=== PATIENT | male | born 1985 | race Caucasian/White ===

== ENCOUNTER 2020-06-11 16:52 | Outpatient (REF) | payer OTHER, SELFPAY | END 2020-06-11 16:53 | disposition home or self-care (01) | LOC: HO.LAB 16:52 | PROVIDERS: Visit Provider Internal Medicine | DX: Z20.828 Contact with and (suspected) exposure to other viral communicable diseases (principal) | CPT/HCPCS: C9803; U0003 ==

== ENCOUNTER 2020-07-05 12:24 | Outpatient (REF) | payer OTHER, SELFPAY | END 2020-07-05 12:25 | disposition home or self-care (01) | LOC: HO.LAB 12:24 | PROVIDERS: Visit Provider Internal Medicine | DX: Z20.828 Contact with and (suspected) exposure to other viral communicable diseases (principal) | CPT/HCPCS: C9803; U0003 ==

== ENCOUNTER 2021-03-22 18:42 | Emergency (ER) | payer OTHER, SELFPAY ==
--- NOTE | 2021-03-22 | ECG_ITS ---
Test Reason : CP Blood Pressure : / mmHG Vent. Rate : 086 BPM Atrial Rate : 086 BPM P-R Int : 106 ms QRS Dur : 076 ms QT Int : 342 ms P-R-T Axes : 052 039 040 degrees QTc Int : 409 ms Sinus rhythm with short HI Otherwise normal ECG When compared with ECG of 23-MAR-2017 12:14, No significant change was found Referred By: Generic ED Physician Electronically Signed By:NADER GUO
--- NOTE | ~2021-03-22 | XR_ITS ---
EXAMINATION: XR CHEST CLINICAL INFORMATION: Chest pain COMPARISON: 03/23/2017 TECHNIQUE: 2 views of the chest were obtained. FINDINGS: Cardiac leads overlie the chest. The lungs are well expanded. There is no focal consolidation, edema, or effusion. No pneumothorax. The cardiomediastinal silhouette is within normal limits. No acute osseous abnormality. XR/XR chest 2V IMPRESSION: Clear lungs.
[2021-03-22 18:44] VITALS: BP 130/84; PULSE 93; RESP 20; TEMP 36.6; O2SAT 98
[2021-03-22 20:27] VITALS: BP 111/77; PULSE 71; RESP 14; O2SAT 97
--- NOTE | 2021-03-22 20:44 | ED_ITS ---
HPI - Chest Pain General Chief Complaint: Chest Pain Stated Complaint: cp Time Seen by Provider: 03/22/21 22:11 Source: patient Mode of arrival: ambulatory Limitations: no limitations History of Present Illness HPI narrative: 36-year-old male presents with multiple episodes of sharp left- sided chest pain starting yesterday. Stated that his pain started while he was at rest, and also occurred during physical exertion. Stated that the pain also cause some hand pain and tingling to the left upper extremity. He does not report any pressure, palpitations, shortness of breath, diaphoresis, abdominal pain, abdominal distention, dysuria, hematuria, nausea, vomiting, diarrhea, constipation, edema, fevers or chills. MD complaint: chest pain Onset (ago): day(s) (2) Timing of current episode: episodic Prior episodes: No Onset: during rest Pain location: left chest Pain radiation: left arm Severity: moderate Quality: sharp Relieving factors: nothing Treatment prior to arrival: none Risk Factors Coronary artery disease risk factors: none Thoracic aortic dissection risk factors: none Related Data Previous Rx's Medication Instructions Recorded ibuprofen 600 mg tablet 600 mg PO Q6H PRN #30 tab 03/22/21 Allergies Allergy/AdvReac Type Severity Reaction Status Date / Time No Known Allergies Allergy Unverified 04/18/20 15:56 Review of Systems Review of Systems: Constitutional: No Fever, No Chills ENT/Mouth: No Ear Pain, No Hoarseness, No sore throat Eyes: No Eye Pain, No Swelling, No Redness, No Foreign Body Cardiovascular: Left intermittent sharp stabbing Chest Pain, No SOB Respiratory: No Cough, No Dyspnea Gastrointestinal: No Nausea, No Vomiting, No Diarrhea, No abdominal Pain Genitourinary: No Dysuria, No Hematuria Musculoskeletal: No joint pain, No Myalgias, No Joint Swelling Skin: No Skin lacerations, No rash Neuro: No Weakness, No Numbness, No Paresthesias, No Loss of Consciousness, No Dizziness, No Headache Psych: No Anxiety/Panic, No Depression Heme/Lymph: no easy bruising, no Lymphadenopathy Endocrine: No Polyuria, No Polydipsia Yes all other systems are reviewed and are negative PMFSH Past Medical History Attestation statement: The following information was validated with the patient. Source: old records reviewed Medical History No known health problems Social History Social History Alcohol intake: never Patient Tobacco Use Status: Current someday Tobacco user Substance Use Type: Marijuana Advance Directives: No Advance Directives Information Provided: No Physical Exam Vital Signs: Vital Signs: Last Vital Signs Temp 97.8 F 03/22/21 18:44 Pulse 74 03/22/21 23:34 Resp 18 03/22/21 23:34 BP 124/72 03/22/21 23:34 Pulse Ox 99 03/22/21 23:34 Body Mass Index 30.0 Appearance: Alert. Oriented X3. No acute distress. Eyes: Pupils equal, round and reactive to light. ENT: Pharynx normal. Moist mucous membranes. Neck: Normal inspection. Neck supple. No cervical lymphadenopathy. CVS: Normal heart rate and rhythm. Pulses normal. Chest wall nontender to palpation. Respiratory: No respiratory distress. Breath sounds normal. Abdomen: Soft and nontender. Skin: Skin warm and dry. Normal skin color. Normal skin turgor. Extremities: No lower extremity edema. Gait well balanced well coordinated. Strength 5 in 5 to all extremities. Neuro: No motor deficit. No sensory deficit. Cranial nerves 2-12 intact. Course Course Course Narrative: 36-year-old male presents with intermittent sharp chest pain to the left side. EKG is normal sinus, troponins are negative. Lab values are negative. Chest x-ray is normal. Highly unlikely that this is ACS at this time. Wells PE and DVT score 0. No history of IVDA or hormone or steroid use. has no family history of sudden cardiac or aortic aneurysms. 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 Most likely pleurisy or costochondritis. Will order Motrin for him. Patient verbalized understanding of and agrees plan of care discharge home. MDM - Chest Pain Differential Diagnosis Differential diagnosis: Likely fracture of rib, pneumothorax, stable angina, atypical chest pain, st elevation myocardial infarction, costochondritis and chest pain Medical Records Data Attestation: I reviewed the patient's medical records. Lab Data Attestation: I reviewed the patient's lab results. Result diagrams: 03/22/21 21:11 03/22/21 21:51 Labs: Lab Results 03/22/21 03/22/21 03/22/21 Range/Units 21:11 21:11 21:51 WBC 9.3 (4.8-10.8) X10*3/uL RBC 5.18 (4.60-5.80) X10*6/uL Hgb 15.5 (14.0-18.0) g/dl Hct 46.1 (42-52) % MCV 89.0 (80-98) fL MCH 29.9 (27.0-33.0) pg MCHC 33.6 (31.0-36.0) g/dl RDW 12.7 (11.0-16.0) % Plt Count 429 H (160-400) X10*3/uL MPV 10.2 (9.4-12.4) fL Immature Gran % (Auto) 0.4 (0.0-0.4) % Neut % (Auto) 62.0 (45-73) % Lymph % (Auto) 28.6 (20-40) % [place] % (Auto) 6.6 (2-11) % Eos % (Auto) 1.9 (0-4) % Baso % (Auto) 0.5 (0-2) % Lymph # (Auto) 2.7 (1.2-4.9) X10*3/uL [place] # (Auto) 0.6 (0.1-1.2) X10*3/uL Eos # (Auto) 0.2 (0.0-0.4) X10*3/uL Baso # (Auto) 0.1 (0.0-0.2) X10*3/uL Abs Immat Gran (auto) 0.04 H (0.00-0.03) X10*3/uL Absolute Neuts (auto) 5.8 (2.0-8.3) X10*3/uL Absolute Nucleated RBC 0.000 (0.0-0.012) X10*3/uL Nucleated RBC % (auto) 0.0 (0.0-0.2) /100WBC Sodium 143 (135-145) mmol/L Potassium 4.8 (3.3-5.1) mmol/L Chloride 109 H (96-108) mmol/L Carbon Dioxide 26 (22-29) mmol/L Anion Gap 13 (12-20) BUN 15 (9-16) mg/dL Creatinine 1.05 (0.5-1.4) mg/dL Estim Creat Clear Calc 102.4 Estimated GFR > 60 Random Glucose 90 (60-115) mg/dL Calcium 9.9 (8.4-10.2) mg/dL Troponin I High Sens < 3.5 (<3.5-35.0) ng/L Imaging Data Chest x-ray: Attestation: I personally reviewed and interpreted this imaging study as follows: Radiologist's impression: EXAMINATION: XR CHEST CLINICAL INFORMATION: Chest pain COMPARISON: 03/23/2017 TECHNIQUE: 2 views of the chest were obtained. FINDINGS: Cardiac leads overlie the chest. The lungs are well expanded. There is no focal consolidation, edema, or effusion. No pneumothorax. The cardiomediastinal silhouette is within normal limits. No acute osseous abnormality. XR/XR chest 2V IMPRESSION: Clear lungs. ECG Data ECG #1: ECG interpretation date: 03/22/21 ECG interpretation time: 18:48 Prior ECG tracings: available for review Interpretation: Vent. Rate : 086 BPM ? ? Atrial Rate : 086 BPM ?? P-R Int : 106 ms? QRS Dur : 076 ms ? ? QT Int : 342 ms ? ? ? P-R-T Axes : 052 039 040 degrees ?? QTc Int : 409 ms ? Sinus rhythm with short ND Otherwise normal ECG When compared with ECG of 23-MAR-2017 12:14, No significant change was found Scores Heart Score History: -0- slightly suspicious ECG: -0- normal Age: -0- < or = 45 Risk factory: -0- no risk factors known Troponin: -0- < or = normal limit Score: 0 Risk: 1.7% Discharge Plan Discharge Clinical Impression: Atypical chest pain Patient Disposition: Home, Self-Care Instructions: Noncardiac Chest Pain (ED) Additional Instructions: You were evaluated for chest pain. Your EKG is normal sinus rhythm, your c ardiac enzymes are negative. Your chest x-ray is normal. Please follow-up with primary care physician. This could be costochondritis or pleurisy. Please take Motrin as needed for pain management. Drink plenty of fluids. Thank you for choosing this emergency department for evaluation. Please follow-up with primary care physician as needed. Return to the emergency department for any new, concerning, or worsening symptoms. Prescriptions: New ibuprofen 600 mg tablet 600 mg PO Q6H PRN (Reason: pain) Qty: 30 RF: 0 Stand Alone Forms: Work/School Release Interventions: ED Discharge Assessment Last Done: 03/22/21 23:36 Discharge Date/Time: 03/22/21 23:39
[2021-03-22 21:17] LABS: MANUAL DIFF FLAG NO
[2021-03-22 21:18] LABS: Basophils Absolute Auto 0.1 X10*3/uL (0.0-0.2); Basophils Percent Auto 0.5 % (0-2); Eosinophils Absolute Auto 0.2 X10*3/uL (0.0-0.4); Eosinophils Percent Auto 1.9 % (0-4); Hematocrit 46.1 % (42-52); Hemoglobin 15.5 g/dl (14.0-18.0); Imm Gran Abs Auto 0.04 X10*3/uL (0.00-0.03); Imm Gran Pct Auto 0.4 % (0.0-0.4); Lymphocytes Absolute Auto 2.7 X10*3/uL (1.2-4.9); Lymphocytes Percent Auto 28.6 % (20-40); Mean Corpuscular HGB Conc 33.6 g/dl (31.0-36.0); Mean Corpuscular Hemoglobin 29.9 pg (27.0-33.0); Mean Platelet Volume 10.2 fL (9.4-12.4); Monocytes Absolute Auto 0.6 X10*3/uL (0.1-1.2); Monocytes Percent Auto 6.6 % (2-11); Neutrophils Absolute Auto 5.8 X10*3/uL (2.0-8.3); Platelet Count 429 X10*3/uL (160-400); Red Blood Count 5.18 X10*6/uL (4.60-5.80); Red Cell Distribution Width 12.7 % (11.0-16.0); White Blood Count 9.3 X10*3/uL (4.8-10.8)
[2021-03-22 22:06] LABS: Troponin-I High Sensitivity < 3.5 ng/L (<3.5-35.0)
[2021-03-22 22:22] LABS: Anion Gap 13 (12-20); Blood Urea Nitrogen 15 mg/dL (9-16); Calcium 9.9 mg/dL (8.4-10.2); Carbon Dioxide 26 mmol/L (22-29); Chloride 109 mmol/L (96-108); Creatinine Clr Calc Pharmacy 102.4; Estimated Glomerular Filt Rate > 60; Glucose Random 90 mg/dL (60-115); Potassium 4.8 mmol/L (3.3-5.1); Sodium 143 mmol/L (135-145)
[2021-03-22 23:34] VITALS: BP 124/72; PULSE 74; RESP 18; O2SAT 99
== END 2021-03-22 23:39 | disposition home or self-care (01) ==
PROVIDERS: Nurse Practitioner Family; Emergency Provider Emergency Medicine
DX: R07.89 Other chest pain (principal)
CPT/HCPCS: 36415; 71046; 80048; 84484; 85025; 93005; 99283; 99285

== ENCOUNTER 2022-04-12 06:29 | Emergency (ER) | payer OTHER, SELFPAY ==
[2022-04-12 06:46] VITALS: BP 131/80; PULSE 97; RESP 18; TEMP 36.6; O2SAT 100; BMI 28.1
--- NOTE | 2022-04-12 08:37 | ED_ITS ---
HPI - Skin/Abscess/Foreign Bdy General Chief complaint: General Medical Stated complaint: ingrown hair under arm Time Seen by Provider: 04/12/22 08:21 Source: patient Mode of arrival: ambulatory Limitations: no limitations History of Present Illness HPI narrative: patient presents emergency department for evaluation of an abscess to the left armpit. He states that it was first noticed a few days ago. Had become increasingly larger in size and more painful. Today he reports that the area began to have active bleeding / drainage. Denies any known insect bite. Denies fevers, chills, prior abscesses, additional abscess/ wound /lesions at this time. Denies history of IV drug usage. Denies immuno compromising conditions. Related Data Previous Rx's Medication Instructions Recorded ibuprofen 600 mg tablet 600 mg PO Q6H PRN pain #30 tabs 03/22/21 cephalexin 500 mg capsule 500 mg PO QID 7 days #28 caps 04/12/22 ibuprofen 600 mg tablet 600 mg PO Q8H PRN pain #30 tabs 04/12/22 Allergies Allergy/AdvReac Type Severity Reaction Status Date / Time No Known Allergies Allergy Unverified 04/18/20 15:56 Review of Systems Review of Systems: Constitutional :? Denies history of same, Denies any other sites involved, Denies IV drug use, Denies history of MRSA, Denies swollen glands, Denies injury, Denies Fever, Denies Chills, + Sig Pain, Denies Systemic symptoms Cardiovascular : No Chest Pain, No SOB Respiratory : No Dyspnea Gastrointestinal : No abdominal pain Musculoskeletal : No Joint Swelling Skin : + abscess with surrounding erythema, No skin laceration, No Foreign bodies, No spreading rash, Denies bites, Positive discharge, Neuro : No Weakness, No Numbness/tingling Psych : No SI/HI/thoughts of self injury Yes all other systems are reviewed and are negative PMFSH Past Medical History Attestation statement: The following information was validated with the patient. Source: old records reviewed Medical History No known health problems Social History Social History Alcohol intake: never Patient Tobacco Use Status: Current someday Tobacco user Substance Use Type: Marijuana Advance Directives: No Advance Directives Information Provided: No Physical Exam Vital Signs: Vital Signs: Last Vital Signs Temp 97.8 F 04/12/22 06:46 Pulse 97 04/12/22 06:46 Resp 18 04/12/22 06:46 BP 131/80 04/12/22 06:46 Pulse Ox 100 04/12/22 06:46 O2 Del Method 04/12/22 06:46 BMI result Body Mass Index 28.1 Appearance: Alert.?Oriented to person, place and time. No acute distress.?Normal affect. Eyes: Pupils equal, round and reactive to light.? ENT: Pharynx normal.?? Neck: Normal inspection.? Neck supple.?? CVS: Heart sounds normal. Normal heart rate and rhythm.? Pulses normal.?? Respiratory: No respiratory distress.? Lung sounds clear to auscultation bilaterally?? Abdomen: Soft and non-tender Skin: Skin warm and dry.? Normal skin color.?? abscess to the left axilla with surrounding erythema, tenderness upon palpation, induration with central fluctuance. Actively draining at the time of exam. Extremities: No lower extremity edema.? Neuro: Moves all extremities spontaneously. Sensation intact bilaterally. CN II- XII intact. Ambulates with normal steady gait. Course Course Course Narrative: Patient is a 37-year-old male with a medical history presenting to emergency department for evaluation of a lump to the left axilla. History physical exam consistent with actively draining abscess. No systemic toxicity, and patient is well-appearing. There is surrounding cellulitis. Not consistent with necrotizing fasciitis, myositis, DVT, osteomyelitis. Patient is now status post mechanical drainage of abscess and tolerated this well. No complications. No labs or imaging indicated at this time. Will discharge home with course of oral antibiotics and symptomatic treatment instructions. Discussed reasons to return to the emergency department, and follow-up with primary care provider. Patient agreeable with plan of care. MDM - Skin/Abscess/Foreign Bdy Medical Records Attestation: I reviewed the patient's medical records. Discharge Plan Discharge Clinical Impression: Abscess of axilla, left Patient Disposition: Home, Self-Care Instructions: Abscess (ED) Additional Instructions: Apply warm moist compress, OR warm water from the shower to soak the left armpit. This will help to decrease swelling, as well as expel any additional pus that may develop. As we discussed, this area may continue to drain over the next couple of days. You have been given a new prescription for an antibiotic, please do to the entire course. Follow-up with your primary care provider within 2-3 days. If you develop new or worsening symptoms such as increased swelling, pain, redness, pus-like drainage, fevers, chills especially despite being on antibiotics this needs to be re-evaluated. Return to emergency department for any new or worsening symptoms or concerns Prescriptions: New ibuprofen 600 mg tablet 600 mg PO Q8H PRN (Reason: pain) Qty: 30 0RF cephalexin 500 mg capsule 500 mg PO QID 7 Days Qty: 28 0RF No Action ibuprofen 600 mg tablet 600 mg PO Q6H PRN (Reason: pain) Qty: 30 0RF
== END 2022-04-12 08:48 | disposition home or self-care (01) ==
PROVIDERS: Emergency Provider Emergency Medicine
DX: L02.412 Cutaneous abscess of left axilla (principal); L60.0 Ingrowing nail; F17.200 Nicotine dependence, unspecified, uncomplicated; Z71.6 Tobacco abuse counseling; Z79.899 Other long term (current) drug therapy
CPT/HCPCS: 99283

== ENCOUNTER 2022-06-16 07:25 | Emergency (ER) | payer OTHER, SELFPAY ==
[2022-06-16 07:28] VITALS: BP 118/72; BP 123/83; PULSE 86; PULSE 96; RESP 18; TEMP 36.6; O2SAT 96; O2SAT 98; BMI 27.3
[2022-06-16 07:58] VITALS: BP 119/76; PULSE 74; RESP 14; TEMP 36.6; O2SAT 97
--- NOTE | 2022-06-16 08:22 | ED_ITS ---
HPI - General Adult General Chief complaint: Ear Problems Stated complaint: ? BUG IN L EAR W/PAIN Time Seen by Provider: 06/16/22 08:05 Source: patient Mode of arrival: EMS Limitations: no limitations History of Present Illness HPI narrative: 37 yo M presents to the ED with complaints of a bug lodged in his left ear. He states that he felt the bug enter his ear around 7 AM while he was lying in his bed and that he can feel a buzzing sensation in the left ear. He attempted to remove the bug using q-tips and a toothpick at home without success. He endorses left ear pain. On exam, a yellow foreign body is present in left ear with small lacerations present in the ear canal most likely due to trauma while tryine to remove the FB. Onset (ago): hour(s) Location: head Severity scale (1-10): 3 Quality: burning Pain Consistency: constant Relieving factors: none Exacerbating factors: other (foreign body ) Associated symptoms: denies other symptoms Related Data Previous Rx's Medication Instructions Recorded ibuprofen 600 mg tablet 600 mg PO Q6H PRN pain #30 tabs 03/22/21 cephalexin 500 mg capsule 500 mg PO QID 7 days #28 caps 04/12/22 ibuprofen 600 mg tablet 600 mg PO Q8H PRN pain #30 tabs 04/12/22 Allergies Allergy/AdvReac Type Severity Reaction Status Date / Time No Known Allergies Allergy Unverified 04/18/20 15:56 Review of Systems Review of Systems: Yes all other systems are reviewed and are negative Constitutional: Constitutional: Reports no additional constitutional complaints Eyes: Eyes: Reports no additional eye complaints ENT: Reports system reviewed and no additional complaints, except as documented and Reports hearing loss (muffled hearing in left ear) Cardiovascular: Cardiovascular: Reports no additional cardiovascular complaints Respiratory: Respiratory: Reports no additional respiratory complaints Psychiatric: Psychiatric: Reports no additional psychiatric complaints [facility] Past Medical History Attestation statement: The following information was validated with the patient. Source: old records reviewed Medical History No known health problems Social History Social History Alcohol intake: never Patient Tobacco Use Status: Current someday Tobacco user Substance Use Type: Marijuana Advance Directives: No Advance Directives Information Provided: Yes Physical Exam ED Vital Signs: Vital Signs - 24 hr 06/16/22 07:28 06/16/22 07:58 Temperature 98 F 97.8 F Pulse Rate 86 74 Respiratory Rate 18 14 Blood Pressure 123/83 119/76 Pulse Oximetry 98 97 Oxygen Delivery Method Room Air BMI result Body Mass Index 27.3 Const General: cooperative and healthy appearing Nutritional Appearance: well nourished Orientation/consciousness: patient oriented x3 Limitations: no limitations HENMT Head: Yes normal to inspection Ears: external ears normal, TM normal on the right and other (unable to visualize Lt TM 2' foreign body) General nose exam: Normal external nose present Face and sinus: Yes normal facial exam Mouth: Normal oral and palatal mucosa present Eyes General: appearance normal, both eyes and all related structures Visual Thomason: normal visual thomason by confrontation Alignment and Position: alignment normal Periorbital: periorbital findings normal Eyelids: Yes eyelids normal Conjunctivae: conjunctivae normal Sclerae: sclerae normal Corneas: corneas normal Pupils: Equal, round and reactive pupils present Neck Neck: Yes normal visual inspection and Yes full ROM Chest Chest palpation & inspection: normal inspection of the chest Resp Effort & Inspection: normal respiratory effort and able to speak in complete sentences Auscultation: clear to auscultation bilaterally Cardio Rhythm: regular rhythm and abnormal rhythm Skin General skin exam: no rashes or lesions noted Neuro General: patient oriented x3 Cranial nerves: Yes Equal, round and reactive pupils present Psych Appearance: grossly normal Mental Status: mental status grossly normal Speech and movement: Normal speech and movement present Affect: normal affect Attitude: cooperative Thought process: Normal thought process present Thought content: Normal thought content present Medical Decision Making [facility] Narrative Medical decision making narrative: 37 yo M with complaints of bug lodged in his ear. Foreign body visualized at the posterior of ear canal (presumed to be an bug) on otoscopic exam. 60 ml NS flushed into ear and currette used to attempt to dislodge FB without success due to difficulty in visualization. Dr Vanessa Landaverde (ENT) contacted and pt to present to office for further evaluation and treatment. Pt discharged from ED to follow up with ENT immediately following discharge. Discharge Plan Discharge Clinical Impression: Foreign body in ear Patient Disposition: Home, Self-Care Prescriptions: No Action ibuprofen 600 mg tablet 600 mg PO Q6H PRN (Reason: pain) Qty: 30 0RF ibuprofen 600 mg tablet 600 mg PO Q8H PRN (Reason: pain) Qty: 30 0RF cephalexin 500 mg capsule 500 mg PO QID 7 Days Qty: 28 0RF Referrals: Massimo Landaverde [Physician] - Interventions: ED Discharge Assessment Last Done: 06/16/22 09:43 Print Language: Albanian
== END 2022-06-16 16:41 | disposition home or self-care (01) ==
PROVIDERS: Emergency Provider Emergency Medicine Emergency Medical Services
DX: T16.2XXA Foreign body in left ear, initial encounter (principal); X58.XXXA Exposure to other specified factors, initial encounter; Y93.9 Activity, unspecified; Y92.009 Unspecified place in unspecified non-institutional (private) residence as the place of occurrence of the external cause; Y99.9 Unspecified external cause status; Z79.899 Other long term (current) drug therapy; F17.200 Nicotine dependence, unspecified, uncomplicated; Z71.6 Tobacco abuse counseling
CPT/HCPCS: 99283